=== PATIENT | female | born 1955 | race Caucasian/White ===

== ENCOUNTER → 2017-09-22 | Outpatient (CLI) | payer BC, OTHER ==
--- NOTE | ~2017-09-22 | PATH ---
[facility] [place] [address] PATHOLOGY RPT PROCEDURE Name: RACIEL MASSEY Room #: REG [facility]#: [id number] Admission: 09/22/17 Date of : 57 Discharge: Report #: [id number] Path Case #: [id number] Note [facility] Accession Number: [id number] TESTS RESULT FLAG UNITS REF RANGE LAB Clinician Provided Cytology Information No. of containers..01 Other (Miscellaneous) Source: RT MID THYROID DIAGNOSIS: 02 RIGHT MID THYROID, FINE NEEDLE ASPIRATION NEGATIVE FOR MALIGNANT CELLS. B[place] CATEGORY II. SPECIMEN CONSISTS OF FOLLICULAR CELLS, HEMOSIDERIN-LADEN MACROPHAGES, COLLOID, AND BLOOD. THIS PATTERN IS CONSISTENT WITH A COLLOID NODULE. THIS INTERPRETATION INCLUDES EVALUATION OF A CELL BLOCK. NEGATIVE FOR NUCLEAR FEATURES OF PAPILLARY THYROID CARCINOMA. Comment: Please note sample may not be entirely traffic workforce representative. Correlate clinically and follow-up as indicated. Pathologist ICD10: 02 E04.1 Signed out by: 02 Kala Kessler MD, Pathologist NPI- [id number] Performed by: 03 Rosa Toth, Sanitarian Aide ([facility]) Gross description: 01 24ML, RED, CLEAR /LCS FLAG LEGEND: L-Low Normal,H-High Normal,LL-Alert Low,HH-Alert High <-Panic Low,>-Panic High,A-Abnormal,AA-Critical Abnormal Performed at: 01 [facility] [address] [facility] [address] [place] [address] Samy Toro MD, [address] [address] Kala Kessler MD, 03 JAY[facility] [address] [address] Raghu Rodriguez MD, Performed at: [address] [address] PATHOLOGY RPT PROCEDURE Name: RACIEL MASSEY Room #: REG THIAGO Ray#: [id number] Admission: 09/22/17 Date of : 57 Discharge: Report #: [id number] Path Case #: [id number] [facility] [address] [facility] [facility] [address], [place], [place] [id number] MD Samy Toro MD Phone: [phone]
== END | disposition home or self-care (01) ==
LOC: ULTRA 08:35
DX: E04.1 Nontoxic single thyroid nodule (principal)